=== PATIENT | male | born 1995 | race African-American/Black ===

== ENCOUNTER 2017-02-27 12:48 | Inpatient (IN) | payer SELFPAY ==
[2017-02-27 13:39] LABS: % IMMATURE GRANULYOCYTES 0.1 % (0.0-1.1); ABSOLUTE IMMATURE GRANULOCYTES 0.01 10^3/uL (0.00-0.10); ADD DIFF? NO; ADD MORPH? NO; ADD SCAN? NO; ATYPICAL LYMPHOCYTE FLAG 30 (0-99); FRAGMENT RBC FLAG 0 (0-99); HEMATOCRIT 42.4 % (40.0-51.0); HEMOGLOBIN 15.8 g/dL (13.7-17.5); LEFT SHIFT FLG 0 (0-99); LIPEMIA HEMOLYSIS FLAG 90 (0-99); MEAN CELL HEMOGLOBIN CONCENTR. 37.3 g/dL (32.4-36.7); MEAN CELL VOLUME 83.3 fL (81.5-99.8); MEAN PLATELET VOLUME 10.7 fL (8.7-11.7); PLATELET CLUMPS FLAG 0 (0-99); PLATELET COUNT 245 10^3/uL (150-400); RED BLOOD CELL COUNT 5.09 10^6/uL (4.40-6.38); RED CELL DISTRIBUTION WIDTH 12.4 % (11.5-15.2)
[2017-02-27 13:54] LABS: ANION GAP 14 mEq/L (8-16); CALCIUM 9.9 mg/dL (8.5-10.4); CARBON DIOXIDE 20 mEq/l (22-31); CHLORIDE 109 mEq/L (97-110); ETHANOL SERUM < 10 mg/dL (0-10); GLOMERULAR FILTRATION RATE > 60; GLUCOSE 82 mg/dL (70-100); POTASSIUM 3.8 mEq/L (3.5-5.2); SODIUM 143 mEq/L (134-144)
--- NOTE | 2017-02-27 14:03 | EDPHY ---
Mental Health General Smoking Status: Never smoked Time Patient Placed on M1 Hold: 12:03 Time Medically Cleared for Psychiatric Evaluation: 14:30 Time of Transfer of Care: 18:[address] To [address]:: David Narrative: CHIEF COMPLAINT: M1 hold HISTORY OF PRESENT ILLNESS: 21-year-old male with past medical history of depression and bipolar presents emergency department by police on an M1 hold. Patient was texting his mother and friends pictures of self-inflicted lacerations on his left arm. Patient reports worsening depression. He states he has not taken any medications for this for 2 years. He does not like the way they make him feel. Denies suicidal ideations, homicidal ideations, auditory or visual hallucinations. Patient reports his only drug use is marijuana. He is agitated that he has been brought to the emergency department. REVIEW OF SYSTEMS: A comprehensive 10 point review of systems is otherwise negative aside from elements mentioned in the history of present illness. Physical Exam Gen: Alert and Oriented, agitated HEENT: PERRL, moist mucous membranes NECK: no meningismus CV: regular rate and regular rhythm PULM: CTAB, mild expiratory wheezes bilateral lower lobes ABDOMEN: soft, non tender to palpation, BS present BACK: No CVA tenderness NEURO: Neurologically grossly intact EXTREMITIES: normal appearing SKIN: Superficial scratches to dorsal aspect of left forearm PSYCH: Reports depression. Denies suicidal ideations, homicidal ideations, auditory and visual hallucinations. (Valerie Muhammad) Medical Decision Makin-Pt report passed on to Dr. Hernandez at the end of my shift pending placement. (Valerie Muhammad) The patient has remained stable on my shift. Patient has been accepted for admission. (Uliecs Hernandez) - Objective Vital Signs: Initial Vital Signs Temperature (C) 36.7 C 02/27/17 13:19 Heart Rate 92 02/27/17 13:19 Respiratory Rate 16 02/27/17 13:19 Blood Pressure 138/85 H 02/27/17 13:19 O2 Sat (%) 96 02/27/17 13:19 O2 Delivery Mode Room Air Allergies/Adverse Reactions: Penicillins Allergy (Unknown, Verified 02/27/17 12:59) Home Medications: Medication Instructions Recorded Albuterol Sulfate [Albuterol HFA 2 puffs IH Q4 PRN 02/25/10 17g] Laboratory Results: Laboratory Results 02/27/17 13:30 02/27/17 13:30 02/27/17 02/27/17 02/27/17 14:16 13:30 13:30 WBC 7.13 10^3/uL 10^3/uL (3.80-9.50) RBC 5.09 10^6/uL 10^6/uL (4.40-6.38) Hgb 15.8 g/dL g/dL (13.7-17.5) Hct 42.4 % % (40.0-51.0) MCV 83.3 fL fL (81.5-99.8) MCH 31.0 pg pg (27.9-34.1) MCHC 37.3 g/dL H g/dL (32.4-36.7) RDW 12.4 % % (11.5-15.2) Plt Count 245 10^3/uL 10^3/uL (150-400) MPV 10.7 fL fL (8.7-11.7) Neut % (Auto) 69.9 % % (39.3-74.2) Lymph % (Auto) 23.6 % % (15.0-45.0) [place] % (Auto) 4.8 % % (4.5-13.0) Eos % (Auto) 1.5 % % (0.6-7.6) Baso % (Auto) 0.1 % L % (0.3-1.7) Nucleat RBC Rel Count 0.0 % % (0.0-0.2) Absolute Neuts (auto) 4.98 10^3/uL 10^3/uL (1.70-6.50) Absolute Lymphs (auto) 1.68 10^3/uL 10^3/uL (1.00-3.00) Absolute Monos (auto) 0.34 10^3/uL 10^3/uL (0.30-0.80) Absolute Eos (auto) 0.11 10^3/uL 10^3/uL (0.03-0.40) Absolute Basos (auto) 0.01 10^3/uL L 10^3/uL (0.02-0.10) Absolute Nucleated RBC 0.00 10^3/uL 10^3/uL (0-0.01) Immature Gran % 0.1 % % (0.0-1.1) Immature Gran # 0.01 10^3/uL 10^3/uL (0.00-0.10) Sodium 143 mEq/L mEq/L (134-144) Potassium 3.8 mEq/L mEq/L (3.5-5.2) Chloride 109 mEq/L mEq/L (97-110) Carbon Dioxide 20 mEq/l L mEq/l (22-31) Anion Gap 14 mEq/L mEq/L (8-16) BUN 9 mg/dL mg/dL (7-23) Creatinine 1.0 mg/dL mg/dL (0.7-1.3) Estimated GFR > 60 Glucose 82 mg/dL mg/dL (70-100) Calcium 9.9 mg/dL mg/dL (8.5-10.4) Urine Opiates Screen NEGATIVE (NEGATIVE) Urine Barbiturates NEGATIVE (NEGATIVE) Ur Phencyclidine Scrn NEGATIVE (NEGATIVE) Ur Amphetamine Screen NEGATIVE (NEGATIVE) U Benzodiazepines Scrn NON-NEGATIVE H (NEGATIVE) Urine Cocaine Screen NEGATIVE (NEGATIVE) U Marijuana (THC) Screen NEGATIVE (NEGATIVE) Ethyl Alcohol < 10 mg/dL mg/dL (0-10) Departure - Departure Disposition: [facility] IP Clinical Impression: Suicidal ideation Condition: Fair
[2017-02-27] MEDS ORDERED: IBUPROFEN 200 MG TAB PO PRN (20:57)
[2017-02-27] MEDS ORDERED: MAG HYDROX/AL HYDROX/SIMETH 30 ML UDCUP PO PRN ×2 (20:57→21:00)
[2017-02-27] MEDS ORDERED: MAGNESIUM HYDROXIDE 30 ML UDCUP PO PRN ×2 (20:57→21:00)
[2017-02-27] MEDS ORDERED: PROMETHAZINE HCL 25 MG SUPPR PR PRN (20:57)
[2017-02-27] MEDS ORDERED: THIAMINE HCL 100 MG TAB (ONCE) PO ONE (20:57)
[2017-02-27] MEDS ORDERED: PROMETHAZINE HCL 25 MG TAB PO PRN (20:57)
[2017-02-27] MEDS ORDERED: THIAMINE HCL 200 MG/2 ML VIAL IM (ONCE) IM ONE (20:57)
[2017-02-27] MEDS ORDERED: chlordiazePOXIDE 25 MG CAP PO PRN (20:57)
[2017-02-27] MEDS ORDERED: MELATONIN 3 MG TAB PO PRN (21:00)
[2017-02-27] MEDS ORDERED: hydrOXYzine HCL 25 MG TAB PO PRN (21:00)
[2017-02-27] MEDS ORDERED: NICOTINE POLACRILEX 2 MG GUM B PRN (21:00)
[2017-02-28] MEDS ORDERED: MULTIVITAMINS 1 EACH TAB PO SCH (09:00)
[2017-02-28] MEDS ORDERED: FOLIC ACID 1 MG TAB PO SCH (09:00)
[2017-02-28] MEDS ORDERED: THIAMINE HCL 100 MG TAB (DAILY X 3) PO SCH (09:00)
[2017-02-28] MEDS ORDERED: ALBUTEROL 60 PUFFS/8 GM MDI IH PRN (12:25)
[2017-02-28] MEDS ORDERED: ALBUTEROL 200 PUFFS/18 GM MDI IH PRN (12:45)
--- NOTE | 2017-02-28 13:30 | BCON ---
[f rep st] BEHAVIORAL HEALTH CONSULTATION INTERNAL MEDICINE CONSULTATION DATE OF CONSULTATION: 02/28/2017 REFERRING PHYSICIAN: Horace Morris MD REASON FOR REFERRAL: Medical clearance for inpatient behavioral health stay. HISTORY OF PRESENT ILLNESS: The patient was brought to the emergency department by police on an M1 hold. He had been texting his mother and friends with pictures of self-inflicted lacerations on his left arm. Mother called the police. He was evaluated by the mental health team and admitted for further psychiatric care. He has no current complaints other than feeling that he does need to be here and that everything is fine. PAST MEDICAL HISTORY: 1. Bipolar disorder. 2. Left ankle fracture, status post ORIF. 3. Asthma. MEDICATIONS: He was taking only albuterol metered-dose inhaler on a p.r.n. basis. ALLERGIES: There is an allergy listed to penicillin. SOCIAL HISTORY: He lives with his mother. He did not complete high school. He has worked for a [employer] company, but is not currently working. He is a tobacco smoker. He also uses street Xanax and marijuana. FAMILY HISTORY: There is a family history of substance abuse. Otherwise, family history is noncontributory. REVIEW OF SYSTEMS: He denies cough or dyspnea. He denies weight change. He denies fevers or chills. Otherwise, a 10-point review of systems is negative. PHYSICAL EXAM: VITAL SIGNS: Blood pressure is 121/68, heart rate is 59, respiratory rate is 12, oxygen saturation is 95% on room air. Temperature is 36.8 degrees centigrade. His weight is 86.2 kg for a body mass index of 25.8. GENERAL: This is a well-nourished, well-developed man, appears his chronologic age, cooperative, and in no acute distress. HEENT: Extraocular movements are intact. Pupils are equal, round, and reactive to light. Mucous membranes are moist. Dentition is in good condition. NECK: Supple. HEART: There is regular rate and rhythm with no murmurs, rubs, or gallops. LUNGS: Clear to auscultation bilaterally. ABDOMEN: Soft, nontender, nondistended with normoactive bowel sounds. EXTREMITIES: There is no cyanosis, clubbing, or edema. NEUROLOGIC: He is alert and oriented x3. He has s somewhat guarded affect and is irritable. Cranial nerves 2-12 are grossly intact. There is no focal weakness. Sensation is intact to light touch, and gait is within normal limits. SKIN: There are multiple superficial lacerations on his left forearm with eschar. There is no erythema or purulence. LABORATORY STUDIES: Drawn in the emergency department: CBC was overall within normal limits. Serum chemistry revealed a slightly low carbon dioxide at 20, otherwise was normal. Toxicology screen in the serum was negative for ethyl alcohol, and the urine was non-negative for benzodiazepines. ASSESSMENT/RECOMMENDATIONS: 1. Mental health issues. Pending further evaluation and management per Psychiatry and the mental health team. 2. Superficial lacerations with no signs or symptoms of infection. Expect these to heal spontaneously. 3. Asthma. I will order albuterol on an as-needed basis. 4. Polysubstance abuse. He might benefit from specific substance abuse counseling. 5. Tobacco dependence syndrome. He was encouraged to stop smoking. I see no medical contraindications to the patient's continued stay on the inpatient behavioral health unit, or to any psychiatric medications or procedures. Thank you very much for including me in the care of this patient. Please do not hesitate to contact me or the hospitalist service should there be need for further medical evaluation. /[id number]/MODL MTDD
--- NOTE | 2017-02-28 14:23 | SOAPPROG ---
SOAP Progress Note Assessment/Plan: Assessment: Admit note dictated: [id number] Plan: 02/28/17 14:23 Objective: Vital Signs Temp Pulse Resp BP Pulse Ox 36.1 C 66 12 120/60 97 02/28/17 12:58 02/28/17 12:58 02/28/17 12:58 02/28/17 12:58 02/28/17 12:58 ICD10 Worksheet Patient Problems: Problems Problem Status Onset Suicidal ideation Acute
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
[2017-02-28] MEDS ORDERED: OLANZapine 5 MG TAB PO SCH (21:00)
[2017-03-01 06:19] VITALS: BP 112/61; PULSE 47; RESP 12; TEMP 98.4; O2SAT 98
[2017-03-01] MEDS ORDERED: OLANZapine 5 MG TAB PO PRN (12:37)
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
== END 2017-03-01 14:44 | disposition home or self-care (01) | DRG 882 ==
LOC: BBEH 19:00
PROVIDERS: ADMIT Specialist; ATTEND Specialist
DX: F43.10 Post-traumatic stress disorder, unspecified (principal); F43.25 Adjustment disorder with mixed disturbance of emotions and conduct; F13.10 Sedative, hypnotic or anxiolytic abuse, uncomplicated; F12.10 Cannabis abuse, uncomplicated; F17.200 Nicotine dependence, unspecified, uncomplicated; J45.909 Unspecified asthma, uncomplicated
CPT/HCPCS: 80305; G0480; J3411

== ENCOUNTER 2017-10-12 01:39 | Emergency (ER) | payer OTHER ==
[2017-10-12 01:45] VITALS: RESP 16; TEMP 97.7
[2017-10-12] MEDS ORDERED: IBUPROFEN 800 MG TAB PO ONE ×2 (02:08→02:10)
[2017-10-12] MEDS ORDERED: HYDROCODONE/APAP 5/325 TAB ONE (02:08)
[2017-10-12] MEDS ORDERED: HYDROCODONE/APAP 5/325 TAB PO ONE (02:10)
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
[2017-10-12 03:23] VITALS: BP 123/55; PULSE 64; O2SAT 94
== END 2017-10-12 03:23 | disposition home or self-care (01) ==
DX: S63.91XA Sprain of unspecified part of right wrist and hand, initial encounter (principal); J45.909 Unspecified asthma, uncomplicated; F17.200 Nicotine dependence, unspecified, uncomplicated; Y04.2XXA Assault by strike against or bumped into by another person, initial encounter; Y99.8 Other external cause status; Y93.89 Activity, other specified
CPT/HCPCS: L3925

== ENCOUNTER 2017-10-20 23:16 | Emergency (ER) | payer OTHER ==
--- NOTE | 2017-10-20 23:30 | EDPHY ---
H & P Stated Complaint: R pointer finger "infection", biting nails Time Seen by Provider: 10/20/17 23:21 HPI/ROS: HPI: This is a 22-year-old male who presents with Chief Complaint: R pointer finger "infection", biting nails Location: Right pointer finger Quality: Infection Duration: 7-10 days Signs and Symptoms: No bleeding, no radiation, no numbness, no weakness, no tingling, no incontinence, no decreased range of motion, + swelling, + pain, no fever Timing: Worsening Severity: [id number] Context: Patient is right-hand dominant, presents with complaints of his right point finger infection inferior to his nail bed that started approximately 7-10 days ago and has worsened over time. Reports that he bites his nails. No history of diabetes/MRSA. Denies paresthesias/weakness/decreased range of motion. Modifying Factors: None Comment: ROS: see HPI Constitutional: No fever, no chills, no weight loss Eyes: No blurred vision Respiratory: No shortness of breath, no cough Cardiovascular: No chest pain Gastrointestinal: No nausea, no vomiting no diarrhea Genitourinary: No dysuria Extremities: No myalgias Neurologic: No weakness, no numbness Skin: No rashes Hematologic: No bruising, no bleeding MEDICAL/SURGICAL/SOCIAL HISTORY: Medical history: Generally healthy. Does not take any regular medications. Surgical history: Left ankle surgery Social history: Unemployed. CONSTITUTIONAL: Well-developed well-nourished young adult male, awake and alert , no obvious distress HEENT: Atraumatic and normocephalic, PERRL, EOMI. Tympanic membranes clear. Oropharynx clear, no exudate and moist pink mucosa. Airway patent. No lymphadenopathy. No meningismus. Cardiovascular: Normal S1/S2, regular rate, regular rhythm, without murmur rub or gallop. PULMONARY/CHEST: Symmetrical and nontender. Clear to auscultation bilaterally. Good air movement. No accessory muscle usage. ABDOMEN: Soft, nondistended, nontender, no rebound, no guarding, no peritoneal signs, no masses or organomegaly. No CVAT. EXTREMITIES: 2/2 pulses, strength 5/5, right pointer finger fluctuance noted at the distal aspect of nail bed; no deformities, no clubbing, no cyanosis or edema. DI P/PIP/MCP flexion and extension intact. Good Light touch sensation. No nail involvement. NEUROLOGICAL: no focal neuro deficits. GCS 15. SKIN: Warm and dry, no erythema. no rash. Good capillary refill. Source: Patient Exam Limitations: No limitations - Personal History Current Tetanus Diphtheria and Acellular Pertussis (TDAP): Yes - Medical/Surgical History Hx Asthma: Yes Hx Chronic Respiratory Disease: No Hx Diabetes: No Hx Cardiac Disease: No Hx Renal Disease: No Hx Cirrhosis: No Hx Alcoholism: No Hx HIV/AIDS: No Hx Splenectomy or Spleen Trauma: No Other PMH: L ANKLE SX - Social History Smoking Status: Light smoker Constitutional: Initial Vital Signs Temperature (C) 36.7 C 10/20/17 23:18 Heart Rate 78 10/20/17 23:18 Respiratory Rate 18 10/20/17 23:18 O2 Sat (%) 95 10/20/17 23:18 O2 Delivery Mode Room Air Allergies/Adverse Reactions: Penicillins Allergy (Unknown, Verified 10/20/17 23:18) Home Medications: Medication Instructions Recorded Sulfamethox/Tmp 800/160 mg 1 tab PO BID #14 tab 10/20/17 [Bactrim Ds] Medical Decision Making Procedures: Procedure: Abscess drainage. The patient's abscess was located on the right pointer finger distal nail bed. Digital block performed using 4 mL of 1% lidocaine without epinephrine. I obtained verbal consent from the patient to drain the abscess who was informed about the possibility of bleeding and pain. The abscess was incised with an 18 gauge needle and 3 mL amount of purulent drainage was expressed. I irrigated the wound. Bacitracin clean sterile dressing applied. The patient tolerated the procedure well. The procedure was performed by myself. ED Course/Re-evaluation: I and D performed Area cleaned with soap and water; bacitracin clean sterile dressing applied. Penicillin allergy and no insurance; given Bactrim No signs of neurovascular compromise/tenting of skin/compartment syndrome/ extremities and joints examined above and below area of concern and are neurovascularly intact. This patient was seen under the supervision of my secondary supervising physician. I evaluated care for this patient independently. Discussed this patient with Dr. Capellan who did not see the patient. Differential Diagnosis: Differential diagnosis includes but is not limited to paronychia, MRSA infection , cellulitis, abscess. Departure - Departure Disposition: Home, Routine, Self-Care Clinical Impression: Paronychia of finger of right hand Condition: Good Instructions: Paronychia (ED) Additional Instructions: Do not bite nails until fully healed. Keep the dressing dry and in place for 48 hours. After 48 hours, you may remove the dressing; wash the site daily with mild soap and water; then pat dry. Take all the Bactrim twice a day x 7 days. Return to the ER immediately if you experience redness, red streaks, have fevers /chills, flu like symptoms, limited range of motion, or any other symptoms that concern you. Referrals: [facility],. [Clinic] - As per Instructions Prescriptions: Sulfamethox/Tmp 800/160 mg [Bactrim Ds] 1 tab PO BID #14 tab
[2017-10-20] MEDS ORDERED: SULFAMETHOX/TMP 800/160 MG 1 TAB PO ONE (23:31)
[2017-10-20] MEDS ORDERED: IBUPROFEN 800 MG TAB PO ONE (23:52)
[2017-10-20 23:58] VITALS: BP 131/86
== END 2017-10-20 23:57 | disposition home or self-care (01) ==
PROC: 0H9FXZZ Drainage of Right Hand Skin, External Approach (ICD-10-PCS; principal; 2017-10-20)
DX: L03.011 Cellulitis of right finger (principal); J45.909 Unspecified asthma, uncomplicated; F17.200 Nicotine dependence, unspecified, uncomplicated

== ENCOUNTER 2018-06-28 11:57 | Emergency (ER) | payer OTHER ==
[2018-06-28 12:02] VITALS: BP 132/75
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
== END 2018-06-28 13:34 | disposition home or self-care (01) ==
PROC: 0CQ1XZZ Repair Lower Lip, External Approach (ICD-10-PCS; principal; 2018-06-28)
DX: S01.511A Laceration without foreign body of lip, initial encounter (principal); S09.90XA Unspecified injury of head, initial encounter; V43.12XA Car passenger injured in collision with other type car in nontraffic accident, initial encounter; Y92.410 Unspecified street and highway as the place of occurrence of the external cause; F17.200 Nicotine dependence, unspecified, uncomplicated; Z88.0 Allergy status to penicillin